=== PATIENT | male | born 1950 | race Caucasian/White ===

== ENCOUNTER → 2022-01-02 | Outpatient (CLI) | payer OTHER ==
[2022-01-02 03:01] LABS: ALBUMIN 3.1 GM/DL (3.2-4.5); POTASSIUM 4.1 MMOL/L (3.6-5.0)
[2022-01-02 03:02] LABS: CALCIUM 8.2 MG/DL (8.5-10.1)
[2022-01-02 03:03] LABS: TOTAL PROTEIN 5.8 GM/DL (6.4-8.2)
[2022-01-02 03:05] LABS: BILIRUBIN,TOTAL 0.4 MG/DL (0.1-1.0)
[2022-01-02 03:07] LABS: CREATININE SERUM 1.78 MG/DL (0.60-1.30)
== END ==
LOC: LABNPT 01:40
PROVIDERS: ATTEND Nurse Practitioner Family
DX: Z01.89 Encounter for other specified special examinations (principal)
CPT/HCPCS: 80053; 83605

== ENCOUNTER 2022-10-30 08:34 | Day surgery (SDC) | payer MEDICARE, OTHER ==
[2022-10-30] VITALS (19 sets, daily range): BP systolic 113–166; BP diastolic 60–99
[~2022-10-30] VITALS: Ht 188 cm; Wt 83.9 kg
[2022-10-30] MEDS ORDERED: LIDOCAINE 1% INJ 20 ML VIAL ONE (08:49)
[2022-10-30] MEDS ORDERED: NS IV 1000 ML 1,000 ML ONE (08:50)
[2022-10-30] MEDS ORDERED: HEParin (CATH LAB) 2,000 ML IV ONE (08:50)
[2022-10-30] MEDS: NS IV 1000 ML 1,000 ML IV SCH ×4 (09:03→22:00)
[2022-10-30 09:19] LABS: HEMATOCRIT 38 % (40-54); HEMOGLOBIN 12.3 g/dL (13.3-17.7); MEAN CORPUSCULAR HEMOGLOBIN 33 pg (25-34); MEAN CORPUSCULAR HGB CONC 33 g/dL (32-36); MEAN CORPUSCULAR VOLUME 101 fL (80-99); MEAN PLATELET VOLUME 10.2 fL (9.0-12.2); PLATELET COUNT 206 10^3/uL (130-400); WHITE BLOOD COUNT 10.2 10^3/uL (4.3-11.0)
[2022-10-30 09:30] LABS: PROTHROMBIN TIME PATIENT 13.4 SEC (12.2-14.7)
[2022-10-30 09:35] LABS: ALBUMIN 4.3 GM/DL (3.2-4.5); BILIRUBIN,TOTAL 0.7 MG/DL (0.1-1.0); CALCIUM 9.7 MG/DL (8.5-10.1); CREATININE SERUM 1.5 MG/DL (0.60-1.30); POTASSIUM 4.7 MMOL/L (3.6-5.0); TOTAL PROTEIN 7.2 GM/DL (6.4-8.2)
--- NOTE | 2022-10-30 09:40 | Diagnostic Imaging Report ---
INDICATION: Peripheral vascular disease. FINDINGS: The lungs are clear although mildly hyperexpanded. This is either air trapping or an aggressive inspiratory effort. The mediastinal contours normal. The heart size and configuration normal. No failure pattern. No effusion or pneumothorax. IMPRESSION: Clear mildly hyperexpanded lungs. No acute appearing abnormality. Dictated by: Dictated on workstation # [id number]
[2022-10-30] MEDS ORDERED: TMSL.4C PO (10:33)
[2022-10-30] MEDS ORDERED: CHOL400T PO (10:33)
[2022-10-30] MEDS ORDERED: ZINC50TA51 PO (10:33)
[2022-10-30] MEDS ORDERED: METO50TA7 PO (10:33)
[2022-10-30] MEDS ORDERED: GABA300C PO (10:33)
[2022-10-30] MEDS ORDERED: INSU100I13 SQ ×2 (10:33)
[2022-10-30] MEDS ORDERED: DULO30CA49 PO (10:33)
[2022-10-30] MEDS ORDERED: ATOR40TA70 PO (10:33)
[2022-10-30] MEDS ORDERED: PANT20TA18 PO (10:33)
[2022-10-30] MEDS ORDERED: ASPI-808 PO (10:33)
[2022-10-30] MEDS ORDERED: METF-399 PO (10:33)
[2022-10-30] MEDS ORDERED: TRAM50TA3 PO (10:33)
[2022-10-30] MEDS ORDERED: MIDAZOLAM 5 MG/5 ML (VERSED) VIAL ONE (10:48)
[2022-10-30] MEDS ORDERED: fentaNYL INJ 100 MCG/2 ML AMP ONE (10:48)
[2022-10-30] MEDS ORDERED: HEParin 1000 UNIT/ML (10ML VIAL) FOR BOLUS ONE (11:32)
--- NOTE | 2022-10-30 11:59 | Peripheral Report ---
Peripheral Report Physician (s)/Color Worker (s) Physician JULISSA GARCIA MD Pre-Procedure Diagnosis Pre-Procedure Diagnosis: Claudication, peripheral arterial disease Post-Procedure Note Procedure Start Date: Oct 30, 2022 Name of Procedure: Bilateral lower extremities runoff Third order Additional imaging x2 Findings/Procedure Note PROCEDURE NOTE: 72-year-old gentleman with peripheral arterial disease, had an abnormal ZITA. Scheduled for peripheral angiogram. After explaining the procedure to the patient, all pros and cons were explained, all questions were answered. The patient signed the consent and then he was placed on the cardiac catheterization laboratory. The patient was placed on the cardiac catheterization laboratory. Groin was prepped SL fashion local anesthesia was used. Sheath placed in the left femoral artery, runoff to the leg was done through the sheath then rim catheter was placed at the right common iliac and runoff to the right leg was done at that point I noticed severe stenosis at multiple segment and the right SFA. I exchanged the sheath and use 45 6 [place] sheath. Give the patient 5000 units of heparin then I did runoff through the sheath that was in the right common femoral. Then I advanced a straight catheter to the popliteal artery and did DSA imaging to the trifurcation then pulled back to the proximal right SFA and did DSA imaging to the SFA then I remove the catheter placed short 6 [place] sheath and decided to abort and proceed with manual pressure. FINDINGS: Right lower extremity: Right common iliac and common femoral has moderate to severe stenosis at the midportion Right SFA is heavily calcified artery with multiple segment of moderate to severe stenosis at the mid and distal right SFA and popliteal artery Right anterior tibial artery has severe stenosis at multiple segment Right posterior tibial artery has severe stenosis proximally Right peroneal artery has severe stenosis diffusely Left lower extremity: Left common iliac and common femoral artery are heavily calcified with moderate disease Left SFA is totally occluded reconstructed distally by collaterals. CONCLUSIONS: Total occlusion of the left SFA reconstructed by collateral at the popliteal level Heavily calcified right lower extremity with severe stenosis at multiple segment in the SFA, an area of severe stenosis in the common iliac artery and occlusion at the distal tibials. DISCUSSION AND RECOMMENDATIONS: Patient had extensive peripheral arterial disease, recommend conservative management, if he has ischemic ulcer he will need complex intervention with possible pedal access and intervention. Anesthesia Type: Conscious Sedation Estimated blood loss (mL): 20 ml Contrast Amount: 29 ml Total Radiation Dose: 75 mGy Post-Procedure Diagnosis Post-operative diagnosis: Peripheral arterial disease Hypertension Hyperlipidemia JULISSA GARCIA MD Oct 30, 2022 11:59
[2022-10-30] MEDS ORDERED: PATIENT MAY USE OWN MEDS, ALL PO SCH (12:00)
--- NOTE | 2022-10-30 12:45 | Discharge Inst-Post CATH ---
Discharge Inst-CATH/EP Problems Reviewed?: Yes Post Cardiac Cath/EP D/C Inst Follow Up/Plan Appointment with Dr. Philip's office in 2 to 4 weeks <b>CARDIAC CATH/EP PROCEDURE DISCHARGE INSTRUCTIONS</b> ACTIVITY * Go Home directly and rest. * Limit activity of the leg (or wrist if it was used) for 7 days including aer obics, swimming, jogging, bicycling, etc. * Restrict stair-climbing for 7 days if possible, if not, climb up with your non-cath leg, then bring together on the same step. * Avoid lifting, pushing, pulling or excessive movement of the affected extremi ty for 7 days. * Customary sexual activity may be resumed after 2 days-use caution not to use a position that strains or causes pain to the affected extremity. * No driving for 24 hours. * NO SMOKING. * Avoid straining for bowel movements for 7 days. * Gentle walking on level ground is allowed. * Returning to work will depend on the type of procedure and the results. Your doctor will discuss this with you. CALL YOUR DOCTOR FOR ANY OF THE FOLLOWING: *If bleeding from the puncture site occurs- Apply gentle pressure to site with clean cloth and call your doctor or EMS. * If a knot or lump forms under the skin, increases in size, or causes pain. * If bruising appears to be worsening or moving further down your leg instead of disappearing. * Temperature above 101 F. CARE OF YOUR GROIN INCISION; * Bruising or purple discoloration of the skin near the puncture site is common. * You may shower only, no bathtub bathing for 5 days. Be careful to avoid slipping as your leg may feel stiff. * If a closure device was used on your femoral artery, please see the attached guide regarding care of the device and your leg. * Leave dressing on FOR 24 hours. CARE OF YOUR WRIST INCISION; * Bruising or purple discoloration of the skin near the puncture site is common. * You may shower. * DO NOT submerge wrist. * Leave dressing on FOR 24 hours. JULISSA PHILIP MD Oct 30, 2022 12:45
[2022-10-30] MEDS: GABAPENTIN 300 MG (NEURONTIN) CAP PO SCH (20:08)
[2022-10-30] MEDS: TAMSULOSIN 0.4 MG (FLOMAX) CAP PO SCH (20:09)
[2022-10-30] MEDS ORDERED: inSUlin ASPART/PROTA (NovoLOG 70/30) CHARGE PER UNIT SC SCH (21:00)
[2022-10-30] MEDS ORDERED: NON-FORMULARY MEDICATION 1 EA EA (Insuln Asp Prt/Insulin Aspart (Novolog Mix 70-30 Flexpen SQ SCH (21:00)
[2022-10-31] VITALS: BP 98/53
[2022-10-31 04:00] VITALS: BP 149/81
[2022-10-31 07:41] VITALS: BP 152/81
[2022-10-31] MEDS ORDERED: inSUlin ASPART/PROTA (NovoLOG 70/30) CHARGE PER UNIT SC SCH (08:00)
[2022-10-31 08:33] VITALS: BP 152/81
--- NOTE | 2022-10-31 08:38 | Cardiology Progress Note ---
Subjective Date Seen by Provider: Oct 31, 2022 Time Seen by Provider: 08:36 Subjective/Events-last exam Patient was seen at bedside, sitting comfortably, groin is healed well. Objective-Cardiology Exam Last Set of Vital Signs Vital Signs 10/31/22 08:33 Temp 35.9 Pulse 101 Resp 17 B/P (MAP) 152/81 (104) Pulse Ox 98 O2 Delivery Nasal Cannula O2 Flow Rate 3.00 3.00 General: Alert, Cooperative HEENT: Atraumatic, PERRLA Neck: Supple, No JVD Lungs: Clear to Auscultation, Normal Air Movement Heart: Regular Rate, Normal S1, Normal S2 Abdomen: Normal Bowel Sounds, Soft Extremities: No Clubbing Skin: No Rashes Neuro: Normal Speech Psych/Mental Status: Mood NL Results Lab Laboratory Tests 10/30/22 09:09 A/P-Cardiology Admission Diagnosis Peripheral arterial disease Peripheral neuropathy Hypertension Diabetes mellitus Assessment/Plan Peripheral arterial disease, peripheral angiogram was done on October 30, 2022, extensive disease Conservative management is recommended, if extensive procedure is needed due to severe claudication or ischemic ulcer we will arrange for referral for tertiary care center For now conservative management is recommended Recommend starting exercise Status post groin bleed, appears to be stable, no hematoma noted Peripheral neuropathy. Managed by medical team Diabetes mellitus, difficult to control, followed and managed by primary care physician Hypertension, continue current medication and monitor Hyperlipidemia. Continue statin I am discharging him home today JULISSA GARCIA MD Oct 31, 2022 08:38
[2022-10-31] MEDS: NS IV 1000 ML 1,000 ML IV SCH (08:49)
[2022-10-31] MEDS: TAMSULOSIN 0.4 MG (FLOMAX) CAP PO SCH (08:55)
[2022-10-31] MEDS: GABAPENTIN 300 MG (NEURONTIN) CAP PO SCH (08:55)
[2022-10-31] MEDS ORDERED: PANTOPRAZOLE 20 MG TABLET (PROTONIX) PO SCH (09:00)
[2022-10-31] MEDS ORDERED: ASPIRIN 325 MG (5 GR) TABLET PO SCH (09:00)
[2022-10-31] MEDS ORDERED: meTOproloL SUCCINATE 50 MG (TOPROL XL) TAB PO SCH (09:00)
[2022-10-31] MEDS ORDERED: NON-FORMULARY MEDICATION 1 EA EA (Insuln Asp Prt/Insulin Aspart (Novolog Mix 70-30 Flexpen SQ SCH (09:00)
[2022-10-31] MEDS ORDERED: DULoxetine 30 MG (CYMBALTA) CAP PO SCH (09:00)
== END 2022-10-31 09:11 | disposition home or self-care (01) ==
LOC: CATH 08:34 → SDC 12:36 → CSD 15:00 → EDPENDDISTM 10-31 09:00 → EDPENDDISDT 10-31 09:00 → CATH 10-31 09:11
PROVIDERS: ATTEND Internal Medicine Cardiovascular Disease
DX: E11.51 Type 2 diabetes mellitus with diabetic peripheral angiopathy without gangrene (principal); E11.42 Type 2 diabetes mellitus with diabetic polyneuropathy; I10 Essential (primary) hypertension; E78.2 Mixed hyperlipidemia; I25.10 Atherosclerotic heart disease of native coronary artery without angina pectoris; R09.89 Other specified symptoms and signs involving the circulatory and respiratory systems; I69.354 Hemiplegia and hemiparesis following cerebral infarction affecting left non-dominant side; F17.290 Nicotine dependence, other tobacco product, uncomplicated; Z79.899 Other long term (current) drug therapy; Z79.84 Long term (current) use of oral hypoglycemic drugs; Z28.310 Unvaccinated for COVID-19
CPT/HCPCS: 36248; 36415; 71045; 75716; 80053; 80061; 85027; 85347; 85610; 85730; 87081; 93005; 93306